=== PATIENT | female | born 1975 | race African-American/Black ===

== ENCOUNTER 2017-02-19 17:51 | Inpatient (IN) | payer OTHER ==
[~2017-02-19] VITALS: Ht 162.6 cm; Wt 118.6 kg
[~2017-02-19 17:51] MED LIST: ACIDOPHILUS1 EAC4 PO; AMLODIPINE BESYL5 MG PO; AMOX TR-K CLV1 EAC4 PO; ANAPROX DS550 M1 PO; APRESOLINE25 MG PO; AUGMENTIN875 MG PO; BACTRIM,SEPT1 TABLET PO; BENADRYL25 MG PO; CLEOCIN300 MG PO; CLONIDINE HCL0.3 MG PO; COLACE100 MG PO; COUMADIN6 MG PO; ENDOCET 5-3251 EACH PO; FERROUS SULFAT325 MG PO; FLAGYL500 MG/100 IV; FUROSEMIDE20 MG PO; GLIPIZIDE-METF1 EAC1 PO; HUMALOG100 UNIT/1 SC; HUMULIN N100 UNIT/2 SC; IBUPROFEN200 M1 PO; IBUPROFEN800 MG PO; IRON325 M1 PO; K-SOL20 MEQ/15 PO; KEFLEX500 MG PO; LABETALOL HCL200 MG PO; LEVEMIR FL100 UNIT/1 SC; LEVETIRACETAM500 MG PO; LIPITOR40 MG PO; LISINOPRIL; LISINOPRIL40 MG PO; LISINOPRIL5 MG PO; LOPRESSOR25 MG PO; LOPRESSOR50 MG PO; LOSARTAN-HCTZ1 EAC1 PO; LOVENOX100 MG/1 M SC; MACROBID100 MG PO; MEDROXYPROGESTE10 MG PO; METAGLIP PO; MILK OF MAGNESI10 ML PO; NIFEDIPINE ER30 MG PO; NITROGLYCERIN1 EAC1 TD; NORVASC10 MG PO; NOVOLOG PE100 UNITS/ SC; OXYCODONE-ACET1 EACH PO; PERCOCET 5/31 TABLET PO; PRAVASTATIN SOD40 MG PO; PRENATAL TABLE1 EAC3 PO; PRIMIDONE50 MG PO; ROCEPHIN 2 GM VI2 GM IV; SERTRALINE HCL25 MG PO; SPIRONOLACTONE50 MG PO; VICODIN 5-3001 EACH PO; VIMPAT100 MG PO; VIMPAT50 MG PO; ZESTRIL40 MG PO
[2017-02-19 19:04] LABS: HEMATOCRIT 35.7 % (36.0-46.0); MCHC 31.9 G/DL (30.0-36.0); MCV 81.5 FL (83-99); MEAN PLAT.VOLUME 9.9 uM^3 (9.5-12.4); PLATELET COUNT 541 K/uL (156-360); RBC DIS.WIDTH-SD 41.1 % (39-53); RED BLOOD COUNT 4.38 M/uL (3.80-5.20); WHITE BLOOD COUNT 9.1 K/uL (4.1-10.2)
[2017-02-19 19:35] LABS: CHLORIDE 113 mEq/L (99-109); POTASSIUM 3.1 mEq/L (3.7-5.4); SODIUM 143 mEq/L (136-147)
[2017-02-19 19:37] LABS: GLUCOSE 138 mg/dL (70-99)
[2017-02-19 19:39] LABS: ANION GAP 10 MEQ/L (2-14); TOTAL BILIRUBIN 0.2 mg/dL (0.0-1.0)
[2017-02-19 19:41] LABS: ALKALINE PHOSPHATASE 71 IU/L (3-129); GFR ESTIMATE (CALCULATED) 21 mL/min/
[2017-02-19 19:42] LABS: UREA NITROGEN (BUN) 27 mg/dL (9-23)
[2017-02-19 19:44] LABS: LIPASE 16 U/L (1.0-51.0)
[2017-02-19 20:32] LABS: QUANTITATIVE HCG < 4.0 MIU/ML
[2017-02-19] MEDS ORDERED: RAMIPRIL10 MG PO (22:07)
[2017-02-19] MEDS ORDERED: NABI650T PO (22:07)
[2017-02-19] MEDS ORDERED: VITAMIN D-32000 UNI2 PO (22:08)
[2017-02-19] MEDS ORDERED: KEPPRA500 MG PO (22:08)
[2017-02-19] MEDS ORDERED: FUROSEMIDE20 MG PO (22:08)
[2017-02-19] MEDS ORDERED: IRON325 M1 PO (22:08)
[2017-02-19] MEDS ORDERED: LABETALOL HCL200 MG PO (22:08)
[2017-02-20] VITALS (7 sets, daily range): BP systolic 158–206; BP diastolic 89–120
[2017-02-20 07:20] LABS: ANION GAP 8 MEQ/L (2-14); CHLORIDE 116 MEQ/L (99-109); GFR ESTIMATE (CALCULATED) 22 mL/min/; GLUCOSE 104 mg/dL (70-99); POTASSIUM 3.5 MEQ/L (3.7-5.4); SAMPLE HEMOLYSIS CHECK 0; SAMPLE ICTERIC CHECK 0; SAMPLE LIPEMIA CHECK 0; SODIUM 144 MEQ/L (136-147); UREA NITROGEN (BUN) 27 mg/dL (9-23)
[2017-02-20 08:00] LABS: POINT-OF-CARE USER ID ENVKC36
[2017-02-20 12:06] LABS: POINT-OF-CARE USER ID ENVKC36
[2017-02-20 16:29] LABS: POINT-OF-CARE USER ID ENVKC36
[2017-02-21] VITALS (8 sets, daily range): BP systolic 158–210; BP diastolic 82–118
[2017-02-21 06:04] LABS: ANION GAP 9 MEQ/L (2-14); CHLORIDE 116 MEQ/L (99-109); GFR ESTIMATE (CALCULATED) 22 mL/min/; GLUCOSE 123 mg/dL (70-99); IRON 18 MCG/DL (35-150); SAMPLE HEMOLYSIS CHECK 0; SAMPLE ICTERIC CHECK 0; SAMPLE LIPEMIA CHECK 0; SODIUM 143 MEQ/L (136-147); UREA NITROGEN (BUN) 26 mg/dL (9-23)
[2017-02-21 06:29] LABS: HEMATOCRIT 28.6 % (36.0-46.0); MCH 25.9 PG (29.0-34.0); MCHC 31.5 G/DL (30.0-36.0); MCV 82.4 FL (83-99); MEAN PLAT.VOLUME 9.9 uM^3 (9.5-12.4); PLATELET COUNT 383 K/uL (156-360); RBC DIS.WIDTH-CV 14.5 % (11.8-14.6); WHITE BLOOD COUNT 7.2 K/uL (4.1-10.2)
[2017-02-21 06:32] LABS: RED BLOOD COUNT 3.47 M/uL (3.80-5.20)
[2017-02-21 08:12] LABS: POINT-OF-CARE METER ID UU14174216
[2017-02-21 11:36] LABS: POINT-OF-CARE METER ID UU14174216; POINT-OF-CARE USER ID NUTSLF44
[2017-02-21 16:32] LABS: POINT-OF-CARE METER ID UU14174216; POINT-OF-CARE USER ID NUTSLF44
[2017-02-22 00:04] VITALS: BP 152/86
[2017-02-22 04:56] VITALS: BP 160/88
[2017-02-22 07:07] LABS: ANION GAP 7 MEQ/L (2-14); CHLORIDE 114 MEQ/L (99-109); GFR ESTIMATE (CALCULATED) 20 mL/min/; GLUCOSE 123 mg/dL (70-99); POTASSIUM 3.8 MEQ/L (3.7-5.4); SAMPLE HEMOLYSIS CHECK 0; SAMPLE ICTERIC CHECK 0; SAMPLE LIPEMIA CHECK 0; SODIUM 140 MEQ/L (136-147); UREA NITROGEN (BUN) 26 mg/dL (9-23)
[2017-02-22 08:24] VITALS: BP 178/84
[2017-02-22 12:07] VITALS: BP 179/88
[2017-02-22 17:32] VITALS: BP 152/84
[2017-02-22 20:15] VITALS: BP 162/88
[2017-02-23] VITALS (12 sets, daily range): BP systolic 36–184; BP diastolic 62–88
[2017-02-23 06:23] LABS: HEMATOCRIT 22.9 % (36.0-46.0); MCH 25.7 PG (29.0-34.0); MEAN PLAT.VOLUME 10.2 uM^3 (9.5-12.4); PLATELET COUNT 341 K/uL (156-360); RBC DIS.WIDTH-CV 14.8 % (11.8-14.6); RBC DIS.WIDTH-SD 45.7 % (39-53); WHITE BLOOD COUNT 6.9 K/uL (4.1-10.2)
[2017-02-23 06:59] LABS: RED BLOOD COUNT 2.76 M/uL (3.80-5.20)
[2017-02-23 07:21] LABS: ANION GAP 6 MEQ/L (2-14); CHLORIDE 114 MEQ/L (99-109); GFR ESTIMATE (CALCULATED) 21 mL/min/; GLUCOSE 101 mg/dL (70-99); POTASSIUM 3.6 MEQ/L (3.7-5.4); SAMPLE HEMOLYSIS CHECK 0; SAMPLE ICTERIC CHECK 0; SAMPLE LIPEMIA CHECK 0; SODIUM 140 MEQ/L (136-147); UREA NITROGEN (BUN) 27 mg/dL (9-23)
[2017-02-23 15:27] LABS: INTERNAL CONTROL VALID? YES
[2017-02-23 15:46] LABS: C DIFF TOXIN NEGATIVE (NEGATIVE)
[2017-02-23 15:50] LABS: PROBE CHECK PASS; SPECIMEN PROCESSING CONTROL PASS
[2017-02-23 21:22] LABS: POINT-OF-CARE METER ID UU14174216
[2017-02-24] VITALS (8 sets, daily range): BP systolic 154–201; BP diastolic 78–103
[2017-02-24 07:03] LABS: Estimated Average Glucose 143 mg/dL (70-123); HEMOGLOBIN A1c (GLYCOHEMOGLOB) 6.6 % HGB (Below 5.7)
[2017-02-24 07:34] LABS: ANION GAP 8 MEQ/L (2-14); CHLORIDE 114 MEQ/L (99-109); GFR ESTIMATE (CALCULATED) 20 mL/min/; GLUCOSE 114 mg/dL (70-99); POTASSIUM 3.9 MEQ/L (3.7-5.4); SAMPLE HEMOLYSIS CHECK 0; SAMPLE ICTERIC CHECK 0; SAMPLE LIPEMIA CHECK 0; SODIUM 141 MEQ/L (136-147); UREA NITROGEN (BUN) 29 mg/dL (9-23)
[2017-02-24 07:44] LABS: HEMATOCRIT 28.3 % (36.0-46.0); MCH 25.9 PG (29.0-34.0); MCHC 31.4 G/DL (30.0-36.0); MCV 82.5 FL (83-99); MEAN PLAT.VOLUME 10.6 uM^3 (9.5-12.4); PLATELET COUNT 297 K/uL (156-360); RBC DIS.WIDTH-CV 15.3 % (11.8-14.6); RBC DIS.WIDTH-SD 46.2 % (39-53)
[2017-02-24 08:26] LABS: RED BLOOD COUNT 3.43 M/uL (3.80-5.20); WHITE BLOOD COUNT 9.7 K/uL (4.1-10.2)
[2017-02-24 11:44] LABS: POINT-OF-CARE METER ID UU14174216
[2017-02-24 15:21] LABS: POC NON-PRINT COM 1 ND
[2017-02-24 16:16] LABS: POINT-OF-CARE METER ID UU14174216
[2017-02-25] VITALS (7 sets, daily range): BP systolic 150–170; BP diastolic 68–88
[2017-02-25 06:50] LABS: ANION GAP 7 MEQ/L (2-14); CHLORIDE 115 MEQ/L (99-109); GFR ESTIMATE (CALCULATED) 19 mL/min/; GLUCOSE 103 mg/dL (70-99); POTASSIUM 4.1 MEQ/L (3.7-5.4); SAMPLE HEMOLYSIS CHECK 0; SAMPLE ICTERIC CHECK 0; SAMPLE LIPEMIA CHECK 0; SODIUM 141 MEQ/L (136-147); UREA NITROGEN (BUN) 29 mg/dL (9-23)
[2017-02-25 07:47] LABS: POINT-OF-CARE METER ID UU14174216
[2017-02-25 11:24] LABS: POINT-OF-CARE METER ID UU14174216
[2017-02-25 16:29] LABS: POINT-OF-CARE METER ID UU14174216
[2017-02-26 03:15] VITALS: BP 146/64
[2017-02-26 06:16] LABS: EOSINOPHIL (%) 2.6 % (0-5); EOSINOPHIL COUNT 0.3 K/uL (0-0.3); HEMATOCRIT 28.1 % (36.0-46.0); IMMATURE GRANULOCYTE (%) 0.4 % (0.0-0.7); INSTRUMENT ABS NEUTROPHIL CT 6.3 K/uL; LYMPHOCYTE COUNT 2.5 K/uL (1.0-2.8); MCHC 31.3 G/DL (30.0-36.0); MCV 83.1 FL (83-99); MONOCYTE (%) 10.4 % (3-12); MONOCYTE COUNT 1.1 K/uL (0-0.8); NEUTROPHIL (%) 61.7 % (45-76); NEUTROPHIL COUNT 6.3 K/uL (1.8-6.4); PLATELET COUNT 300 K/uL (156-360); RBC DIS.WIDTH-SD 45.2 % (39-53); RED BLOOD COUNT 3.38 M/uL (3.80-5.20); WHITE BLOOD COUNT 10.2 K/uL (4.1-10.2)
[2017-02-26 06:48] LABS: ANION GAP 7 MEQ/L (2-14); CHLORIDE 114 MEQ/L (99-109); GFR ESTIMATE (CALCULATED) 20 mL/min/; GLUCOSE 113 mg/dL (70-99); POTASSIUM 4.2 MEQ/L (3.7-5.4); SAMPLE HEMOLYSIS CHECK 0; SAMPLE ICTERIC CHECK 0; SAMPLE LIPEMIA CHECK 0; SODIUM 140 MEQ/L (136-147); UREA NITROGEN (BUN) 28 mg/dL (9-23)
[2017-02-26 08:00] VITALS: BP 158/98
[2017-02-26 11:32] VITALS: BP 160/98
[2017-02-26 12:10] LABS: POINT-OF-CARE METER ID UU13113781
[2017-02-26] MEDS ORDERED: HYDROCHLOROTHIA25 MG PO (12:47)
[2017-02-26] MEDS ORDERED: LOSARTAN POTAS100 MG PO (12:47)
[2017-02-26] MEDS ORDERED: DOXAZOSIN MESYLA2 MG PO (12:47)
[2017-02-26] MEDS ORDERED: LABETALOL HCL200 MG PO (12:47)
[2017-02-26] MEDS ORDERED: IMDUR30 MG PO (12:47)
[2017-02-26] MEDS ORDERED: APRESOLINE25 MG PO (12:47)
== END 2017-02-26 14:57 | disposition home health service (06) | DRG 683 ==
LOC: EME 17:51 → EDOF 23:44 → 4EAST 23:44
PROVIDERS: Emergency Medicine; Family Medicine; Internal Medicine; Internal Medicine Nephrology; Physician Assistant; Student in an Organized Health Care Education/Training Program
PROC: 30233N1 Transfusion of Nonautologous Red Blood Cells into Peripheral Vein, Percutaneous Approach (ICD-10-PCS; principal; 2017-02-23)
DX: N17.9 Acute kidney failure, unspecified (principal); E46 Unspecified protein-calorie malnutrition; Z68.41 Body mass index [BMI] 40.0-44.9, adult; R42 Dizziness and giddiness; R19.7 Diarrhea, unspecified; R11.2 Nausea with vomiting, unspecified; E87.6 Hypokalemia; D50.9 Iron deficiency anemia, unspecified; I16.0 Hypertensive urgency; I12.9 Hypertensive chronic kidney disease with stage 1 through stage 4 chronic kidney disease, or unspecified chronic kidney disease; N18.4 Chronic kidney disease, stage 4 (severe); E11.21 Type 2 diabetes mellitus with diabetic nephropathy; E11.22 Type 2 diabetes mellitus with diabetic chronic kidney disease; E11.311 Type 2 diabetes mellitus with unspecified diabetic retinopathy with macular edema; L73.2 Hidradenitis suppurativa; N61.1 Abscess of the breast and nipple; R32 Unspecified urinary incontinence; E66.01 Morbid (severe) obesity due to excess calories; Z86.73 Personal history of transient ischemic attack (TIA), and cerebral infarction without residual deficits; Z88.0 Allergy status to penicillin; Z88.2 Allergy status to sulfonamides; Z91.040 Latex allergy status; Z86.718 Personal history of other venous thrombosis and embolism; Z91.19 Patient's noncompliance with other medical treatment and regimen
CPT/HCPCS: 70450; 76770; 80048; 80053; 80069; 81003; 82272; 82948; 83036; 83540; 83690; 83735; 84466; 84702; 85025; 85027; 86850; 86900; 86901; 86920; 87493; 99281; 99285; A6260; J0360; J0780; J1644; J1756; J1815; J1940; J2270; J2405; J7030; J7050; P9016

== ENCOUNTER 2017-05-06 08:15 | Emergency (ER) | payer OTHER ==
[~2017-05-06] VITALS: Ht 172.7 cm; Wt 115.8 kg
[~2017-05-06 08:15] MED LIST changes: +DOXAZOSIN MESYLA2 MG PO; +HYDROCHLOROTHIA25 MG PO; +IMDUR30 MG PO; +KEPPRA500 MG PO; +LOSARTAN POTAS100 MG PO; +NABI650T PO; +RAMIPRIL10 MG PO; +VITAMIN D-32000 UNI2 PO
[2017-05-06 08:44] LABS: EOSINOPHIL (%) 2.4 % (0-5); EOSINOPHIL COUNT 0.2 K/uL (0-0.3); HEMATOCRIT 29.4 % (36.0-46.0); IMMATURE GRANULOCYTE (%) 0.3 % (0.0-0.7); INSTRUMENT ABS NEUTROPHIL CT 4.4 K/uL; LYMPHOCYTE COUNT 1.7 K/uL (1.0-2.8); MCH 26.5 PG (29.0-34.0); MCHC 30.6 G/DL (30.0-36.0); MCV 86.5 FL (83-99); MEAN PLAT.VOLUME 10.3 uM^3 (9.5-12.4); MONOCYTE (%) 8.8 % (3-12); MONOCYTE COUNT 0.6 K/uL (0-0.8); NEUTROPHIL (%) 62.9 % (45-76); NEUTROPHIL COUNT 4.4 K/uL (1.8-6.4); PLATELET COUNT 351 K/uL (156-360); RBC DIS.WIDTH-CV 15.1 % (11.8-14.6); RBC DIS.WIDTH-SD 47.5 % (39-53)
[2017-05-06 08:53] LABS: PROTHROMBIN TIME 10.4 (9.2-11.2); PTT 24.5 (25-32)
[2017-05-06 08:54] LABS: AMYLASE 44 IU/L (1-118); CHLORIDE 115 mEq/L (99-109); POTASSIUM 4.1 mEq/L (3.7-5.4); SODIUM 143 mEq/L (136-147)
[2017-05-06 08:56] LABS: GLUCOSE 158 mg/dL (70-99)
[2017-05-06 08:57] LABS: ANION GAP 9 MEQ/L (2-14)
[2017-05-06 08:59] LABS: SERUM ETHYL ALCOHOL < 10 mg/dL
[2017-05-06 09:00] LABS: CREATININE 4.9 mg/dL (0.6-1.3); POTASSIUM 3.9 mEq/L (3.7-5.4)
[2017-05-06 09:00] LABS: GFR ESTIMATE (CALCULATED) 13 mL/min/
[2017-05-06 09:01] LABS: UREA NITROGEN (BUN) 39 mg/dL (9-23)
[2017-05-06 09:03] LABS: LIPASE 22 U/L (1.0-51.0)
[2017-05-06 09:06] LABS: TROP-I INTERPRETATION NEGATIVE; TROPONIN-I 0.01 ng/mL (0.0-0.30)
[2017-05-06 09:08] LABS: QUANTITATIVE HCG < 4.0 MIU/ML
[2017-05-06 13:24] LABS: ADD MIUA? YES; BILIRUBIN NEGATIVE; BLOOD NEGATIVE; COLOR YELLOW ((YELLOW)); GLUCOSE (STRIP) >=500; KETONES NEGATIVE; LEUKOCYTES NEGATIVE; NITRITE NEGATIVE; PROTEIN (STRIP) >=500; SPECIFIC GRAVITY 1.015 (1.000-1.030); UROBILINOGEN 0.2 MG/DL (0.2-1.0)
[2017-05-06 13:29] VITALS: BP 204/146
[2017-05-06 13:37] LABS: AMPHETAMINE NEGATIVE (500 ng/mL); BARBITURATES NEGATIVE (200 ng/mL); BENZODIAZEPINES NEGATIVE (150 ng/mL); COCAINE NEGATIVE (150 ng/mL); INTERNAL CONTROLS VALID? YES; METHADONE NEGATIVE (200 ng/mL); METHAMPHETAMINE NEGATIVE (500 ng/mL); OPIATES (MORPHINE) NEGATIVE (100 ng/mL); OXYCODONE NEGATIVE (100 ng/mL); PHENCYCLIDINE NEGATIVE (25 ng/mL); PROPOXYPHENE NEGATIVE (300 ng/mL); THC CANNABINOIDS NEGATIVE (50 ng/mL); TRICYCLIC ANTIDEPRESSANTS NEGATIVE (300 ng/mL)
[2017-05-06 13:40] LABS: BACTERIA RARE /HPF; EPITHELIAL CELLS NONE SEEN /HPF; HYALINE CASTS 0-5 /LPF; MUCUS NONE SEEN /LPF; RED BLOOD CELLS 0-5 /HPF (0-5); UCUL ADDED? NO
== END 2017-05-06 13:34 | disposition short-term general hospital (02) ==
LOC: EME 08:15
PROVIDERS: Emergency Medicine
DX: I63.9 Cerebral infarction, unspecified (principal); R47.01 Aphasia; R29.810 Facial weakness; G81.91 Hemiplegia, unspecified affecting right dominant side; R47.1 Dysarthria and anarthria; R29.714 NIHSS score 14; N28.9 Disorder of kidney and ureter, unspecified; I10 Essential (primary) hypertension; E11.9 Type 2 diabetes mellitus without complications; Z79.4 Long term (current) use of insulin; Z86.73 Personal history of transient ischemic attack (TIA), and cerebral infarction without residual deficits; Z87.891 Personal history of nicotine dependence; Z88.0 Allergy status to penicillin
CPT/HCPCS: 70450; 70544; 70547; 70551; 80047; 80048; 81003; 82150; 83690; 84484; 84702; 85025; 85610; 85730; 86900; 86901; 93005; 99281; 99285; G0480

== ENCOUNTER 2017-05-10 13:06 | Inpatient (IN) | payer OTHER ==
[~2017-05-10] VITALS: Ht 167.6 cm; Wt 94.5 kg
[2017-05-10 13:48] VITALS: BP 137/91
[2017-05-10] MEDS ORDERED: ATORVASTATIN CA80 MG PO (14:18)
[2017-05-10] MEDS ORDERED: ASPIRIN81 M2 PO (14:18)
[2017-05-10 16:03] LABS: POINT-OF-CARE METER ID UU14174215
[2017-05-10 21:21] LABS: POINT-OF-CARE METER ID UU13113720
[2017-05-11 04:30] VITALS: BP 140/81
[2017-05-11 06:44] LABS: POINT-OF-CARE METER ID UU14174215; POINT-OF-CARE USER ID ENVGAF
[2017-05-11 06:55] LABS: HEMATOCRIT 26.2 % (36.0-46.0); MCH 26.8 PG (29.0-34.0); MCHC 30.9 G/DL (30.0-36.0); MCV 86.8 FL (83-99); MEAN PLAT.VOLUME 10.7 uM^3 (9.5-12.4); PLATELET COUNT 283 K/uL (156-360); RBC DIS.WIDTH-CV 14.6 % (11.8-14.6); RBC DIS.WIDTH-SD 46.2 % (39-53); RED BLOOD COUNT 3.02 M/uL (3.80-5.20)
[2017-05-11 07:23] LABS: ALKALINE PHOSPHATASE 56 IU/L (3-129); ANION GAP 8 MEQ/L (2-14); CHLORIDE 117 MEQ/L (99-109); GFR ESTIMATE (CALCULATED) 13 mL/min/; GLUCOSE 144 mg/dL (70-99); POTASSIUM 4.3 MEQ/L (3.7-5.4); SAMPLE HEMOLYSIS CHECK 0; SAMPLE ICTERIC CHECK 0; SAMPLE LIPEMIA CHECK 0; SODIUM 144 MEQ/L (136-147); TOTAL BILIRUBIN 0.2 MG/DL (0.0-1.0); UREA NITROGEN (BUN) 41 mg/dL (9-23)
[2017-05-11 11:19] LABS: POINT-OF-CARE METER ID UU14174215; POINT-OF-CARE USER ID ENVGAF
[2017-05-11 14:57] VITALS: BP 120/65
[2017-05-11 16:01] LABS: POINT-OF-CARE METER ID UU14174215; POINT-OF-CARE USER ID 610211320
[2017-05-11 21:10] LABS: POINT-OF-CARE METER ID UU14174215; POINT-OF-CARE USER ID 610211320
[2017-05-12 05:34] VITALS: BP 121/68
[2017-05-12 07:12] LABS: EOSINOPHIL (%) 1.8 % (0-5); EOSINOPHIL COUNT 0.1 K/uL (0-0.3); HEMATOCRIT 26.3 % (36.0-46.0); IMMATURE GRANULOCYTE (%) 0.3 % (0.0-0.7); INSTRUMENT ABS NEUTROPHIL CT 4.3 K/uL; LYMPHOCYTE COUNT 1.3 K/uL (1.0-2.8); MCH 27.2 PG (29.0-34.0); MCHC 30.8 G/DL (30.0-36.0); MCV 88.3 FL (83-99); MEAN PLAT.VOLUME 10.8 uM^3 (9.5-12.4); MONOCYTE (%) 7.6 % (3-12); MONOCYTE COUNT 0.5 K/uL (0-0.8); NEUTROPHIL (%) 68.7 % (45-76); NEUTROPHIL COUNT 4.3 K/uL (1.8-6.4); PLATELET COUNT 287 K/uL (156-360); RBC DIS.WIDTH-CV 14.7 % (11.8-14.6); RBC DIS.WIDTH-SD 47.8 % (39-53); RED BLOOD COUNT 2.98 M/uL (3.80-5.20); WHITE BLOOD COUNT 6.3 K/uL (4.1-10.2)
[2017-05-12 07:23] LABS: POINT-OF-CARE METER ID UU13113720; POINT-OF-CARE USER ID AHSSSJB31
[2017-05-12 07:32] LABS: ANION GAP 9 MEQ/L (2-14); CHLORIDE 117 MEQ/L (99-109); GFR ESTIMATE (CALCULATED) 13 mL/min/; GLUCOSE 117 mg/dL (70-99); POTASSIUM 4.5 MEQ/L (3.7-5.4); SAMPLE HEMOLYSIS CHECK 0; SAMPLE ICTERIC CHECK 0; SAMPLE LIPEMIA CHECK 0; SODIUM 145 MEQ/L (136-147); UREA NITROGEN (BUN) 44 mg/dL (9-23)
[2017-05-12 10:22] LABS: HBSG INDEX 0.21
[2017-05-12 10:23] LABS: HPCA INDEX 0.05
[2017-05-12 10:25] LABS: ANTI-HEPATITIS A VIRUS (IGM) Nonreactive; ANTI-HEPATITIS B CORE (IGM) Nonreactive; HAV INDEX 0.11; HBC IgM INDEX 0.05
[2017-05-12 11:22] LABS: POINT-OF-CARE METER ID UU14174215; POINT-OF-CARE USER ID AHSSSJB31
[2017-05-12 15:43] VITALS: BP 148/73
[2017-05-12 16:42] LABS: POINT-OF-CARE METER ID UU13113720
[2017-05-12 21:26] LABS: POINT-OF-CARE METER ID UU14174215
[2017-05-13 05:06] VITALS: BP 138/68
[2017-05-13 06:41] LABS: EOSINOPHIL (%) 2.4 % (0-5); EOSINOPHIL COUNT 0.2 K/uL (0-0.3); HEMATOCRIT 24.8 % (36.0-46.0); IMMATURE GRANULOCYTE (%) 0.9 % (0.0-0.7); IMMATURE GRANULOCYTE COUNT 0.1 K/uL; INSTRUMENT ABS NEUTROPHIL CT 4.9 K/uL; LYMPHOCYTE COUNT 1.6 K/uL (1.0-2.8); MCH 27.9 PG (29.0-34.0); MCHC 31.9 G/DL (30.0-36.0); MCV 87.6 FL (83-99); MEAN PLAT.VOLUME 11.7 uM^3 (9.5-12.4); MONOCYTE (%) 9.6 % (3-12); MONOCYTE COUNT 0.7 K/uL (0-0.8); NEUTROPHIL (%) 65.2 % (45-76); NEUTROPHIL COUNT 4.9 K/uL (1.8-6.4); PLATELET COUNT 237 K/uL (156-360); RBC DIS.WIDTH-CV 14.7 % (11.8-14.6); RBC DIS.WIDTH-SD 47.2 % (39-53); RED BLOOD COUNT 2.83 M/uL (3.80-5.20); WHITE BLOOD COUNT 7.5 K/uL (4.1-10.2)
[2017-05-13 06:47] LABS: POINT-OF-CARE METER ID UU13113720; POINT-OF-CARE USER ID ENVGAF
[2017-05-13 07:15] LABS: ANION GAP 9 MEQ/L (2-14); CHLORIDE 118 MEQ/L (99-109); GFR ESTIMATE (CALCULATED) 13 mL/min/; GLUCOSE 100 mg/dL (70-99); POTASSIUM 4.5 MEQ/L (3.7-5.4); SAMPLE HEMOLYSIS CHECK 0; SAMPLE ICTERIC CHECK 0; SAMPLE LIPEMIA CHECK 0; SODIUM 144 MEQ/L (136-147); UREA NITROGEN (BUN) 44 mg/dL (9-23)
[2017-05-13 11:08] LABS: POINT-OF-CARE METER ID UU13113720; POINT-OF-CARE USER ID ENVGAF
[2017-05-13 15:36] VITALS: BP 135/95
[2017-05-13 16:35] LABS: POINT-OF-CARE METER ID UU13113720
[2017-05-13 21:06] LABS: POINT-OF-CARE METER ID UU13113720
[2017-05-14 05:03] VITALS: BP 139/80
[2017-05-14 06:41] LABS: ANION GAP 9 MEQ/L (2-14); CHLORIDE 117 MEQ/L (99-109); GFR ESTIMATE (CALCULATED) 12 mL/min/; GLUCOSE 98 mg/dL (70-99); POTASSIUM 4.5 MEQ/L (3.7-5.4); SAMPLE HEMOLYSIS CHECK 0; SAMPLE ICTERIC CHECK 0; SAMPLE LIPEMIA CHECK 0; SODIUM 145 MEQ/L (136-147); UREA NITROGEN (BUN) 44 mg/dL (9-23)
[2017-05-14 06:59] LABS: POINT-OF-CARE METER ID UU13113720; POINT-OF-CARE USER ID AHSSSJB31
[2017-05-14 08:03] VITALS: BP 174/81
[2017-05-14 10:38] LABS: UR CREATININE CONCENTRATION 97.8 MG/DL
[2017-05-14 12:15] LABS: POINT-OF-CARE METER ID UU13113720; POINT-OF-CARE USER ID AHSSSJB31
[2017-05-14 15:24] VITALS: BP 173/106
[2017-05-14 16:50] LABS: POINT-OF-CARE METER ID UU13113720
[2017-05-14 21:45] LABS: POINT-OF-CARE METER ID UU14174215
[2017-05-15 05:26] VITALS: BP 128/81
[2017-05-15 06:44] LABS: POINT-OF-CARE METER ID UU13113720
[2017-05-15 07:17] LABS: ANION GAP 12 MEQ/L (2-14); CHLORIDE 118 MEQ/L (99-109); GFR ESTIMATE (CALCULATED) 12 mL/min/; GLUCOSE 97 mg/dL (70-99); POTASSIUM 4.4 MEQ/L (3.7-5.4); SAMPLE HEMOLYSIS CHECK 0; SAMPLE ICTERIC CHECK 0; SAMPLE LIPEMIA CHECK 0; SODIUM 147 MEQ/L (136-147); UREA NITROGEN (BUN) 45 mg/dL (9-23)
[2017-05-15 11:57] LABS: POINT-OF-CARE METER ID UU13113720; POINT-OF-CARE USER ID ENVGAF
[2017-05-15 16:30] LABS: POINT-OF-CARE METER ID UU13113720
[2017-05-15 16:33] VITALS: BP 140/84
[2017-05-15 21:06] LABS: POINT-OF-CARE METER ID UU14174215
[2017-05-16 04:48] VITALS: BP 129/68
[2017-05-16 06:41] LABS: POINT-OF-CARE METER ID UU13113720; POINT-OF-CARE USER ID ENVGAF
[2017-05-16 07:17] LABS: EOSINOPHIL (%) 3.4 % (0-5); EOSINOPHIL COUNT 0.2 K/uL (0-0.3); HEMATOCRIT 25.1 % (36.0-46.0); IMMATURE GRANULOCYTE (%) 0.3 % (0.0-0.7); INSTRUMENT ABS NEUTROPHIL CT 3.8 K/uL; MCH 27.7 PG (29.0-34.0); MCHC 31.1 G/DL (30.0-36.0); MEAN PLAT.VOLUME 10.8 uM^3 (9.5-12.4); MONOCYTE (%) 11.6 % (3-12); MONOCYTE COUNT 0.8 K/uL (0-0.8); NEUTROPHIL (%) 55.6 % (45-76); NEUTROPHIL COUNT 3.8 K/uL (1.8-6.4); RBC DIS.WIDTH-CV 14.3 % (11.8-14.6); RBC DIS.WIDTH-SD 46.1 % (39-53); RED BLOOD COUNT 2.82 M/uL (3.80-5.20); WHITE BLOOD COUNT 6.8 K/uL (4.1-10.2)
[2017-05-16 07:24] LABS: PLATELET COUNT 329 K/uL (156-360)
[2017-05-16 07:40] LABS: ANION GAP 9 MEQ/L (2-14); CHLORIDE 119 MEQ/L (99-109); GFR ESTIMATE (CALCULATED) 12 mL/min/; GLUCOSE 88 mg/dL (70-99); POTASSIUM 4.3 MEQ/L (3.7-5.4); SAMPLE HEMOLYSIS CHECK 0; SAMPLE ICTERIC CHECK 0; SAMPLE LIPEMIA CHECK 0; SODIUM 147 MEQ/L (136-147); UREA NITROGEN (BUN) 44 mg/dL (9-23)
[2017-05-16 11:44] LABS: POINT-OF-CARE METER ID UU13113720; POINT-OF-CARE USER ID AHSSSJB31
[2017-05-16 15:39] VITALS: BP 130/75
[2017-05-16 16:32] LABS: POINT-OF-CARE METER ID UU14174215
[2017-05-16 21:23] LABS: POINT-OF-CARE METER ID UU13113720
[2017-05-17 04:32] VITALS: BP 155/72
[2017-05-17 07:04] LABS: ANION GAP 10 MEQ/L (2-14); CHLORIDE 118 MEQ/L (99-109); GFR ESTIMATE (CALCULATED) 13 mL/min/; GLUCOSE 84 mg/dL (70-99); POTASSIUM 4.3 MEQ/L (3.7-5.4); SAMPLE HEMOLYSIS CHECK 0; SAMPLE ICTERIC CHECK 0; SAMPLE LIPEMIA CHECK 0; SODIUM 146 MEQ/L (136-147); UREA NITROGEN (BUN) 42 mg/dL (9-23)
[2017-05-17 08:15] LABS: POINT-OF-CARE METER ID UU13113720; POINT-OF-CARE USER ID AHSSSJB31
[2017-05-17 11:23] LABS: POINT-OF-CARE METER ID UU13113720; POINT-OF-CARE USER ID AHSSSJB31
[2017-05-17 15:26] VITALS: BP 144/71
[2017-05-18 04:37] VITALS: BP 157/73
[2017-05-18 07:29] LABS: IRON 33 MCG/DL (35-150)
[2017-05-18 07:38] LABS: POINT-OF-CARE METER ID UU14174215
[2017-05-18 15:11] VITALS: BP 137/73
[2017-05-19 05:23] VITALS: BP 133/65
[2017-05-19 06:10] LABS: POINT-OF-CARE METER ID UU13113720
[2017-05-19 08:16] LABS: INTACT PARATHYROID HORMONE 63 pg/mL (10-69)
[2017-05-19 10:31] LABS: AHBS INDEX 0; HEPATITIS B SURFACE ANTIBODY Nonreactive; HPCA INDEX 0.05
[2017-05-19 11:07] LABS: ANTI-HEPATITIS B CORE (TOTAL) Nonreactive; HBCT INDEX 0.07
[2017-05-19 15:45] VITALS: BP 156/93
[2017-05-20 05:02] VITALS: BP 129/74
[2017-05-20 06:21] LABS: POINT-OF-CARE METER ID UU13113720
[2017-05-20 10:27] LABS: EOSINOPHIL (%) 3.4 % (0-5); EOSINOPHIL COUNT 0.3 K/uL (0-0.3); HEMATOCRIT 24.3 % (36.0-46.0); IMMATURE GRANULOCYTE (%) 0.5 % (0.0-0.7); LYMPHOCYTE COUNT 1.4 K/uL (1.0-2.8); MCH 26.5 PG (29.0-34.0); MCV 88.4 FL (83-99); MEAN PLAT.VOLUME 10.9 uM^3 (9.5-12.4); MONOCYTE (%) 7.7 % (3-12); MONOCYTE COUNT 0.7 K/uL (0-0.8); NEUTROPHIL (%) 71.2 % (45-76); PLATELET COUNT 320 K/uL (156-360); RBC DIS.WIDTH-CV 14.1 % (11.8-14.6); RBC DIS.WIDTH-SD 45.1 % (39-53); RED BLOOD COUNT 2.75 M/uL (3.80-5.20); WHITE BLOOD COUNT 8.4 K/uL (4.1-10.2)
[2017-05-20 10:28] LABS: ANION GAP 9 MEQ/L (2-14); CHLORIDE 118 MEQ/L (99-109); GFR ESTIMATE (CALCULATED) 14 mL/min/; GLUCOSE 90 mg/dL (70-99); POTASSIUM 4.4 MEQ/L (3.7-5.4); SAMPLE HEMOLYSIS CHECK 0; SAMPLE ICTERIC CHECK 0; SAMPLE LIPEMIA CHECK 0; SODIUM 145 MEQ/L (136-147); UREA NITROGEN (BUN) 42 mg/dL (9-23)
[2017-05-20 12:09] VITALS: BP 143/81
[2017-05-20 15:30] VITALS: BP 139/72
[2017-05-21 05:54] VITALS: BP 123/67
[2017-05-21 06:00] LABS: POINT-OF-CARE METER ID UU13113720
[2017-05-21 08:15] LABS: EOSINOPHIL (%) 2.4 % (0-5); EOSINOPHIL COUNT 0.2 K/uL (0-0.3); HEMATOCRIT 22.9 % (36.0-46.0); IMMATURE GRANULOCYTE (%) 0.7 % (0.0-0.7); IMMATURE GRANULOCYTE COUNT 0.1 K/uL; INSTRUMENT ABS NEUTROPHIL CT 5.5 K/uL; MCH 27.1 PG (29.0-34.0); MCV 87.4 FL (83-99); MEAN PLAT.VOLUME 10.6 uM^3 (9.5-12.4); MONOCYTE (%) 8.8 % (3-12); MONOCYTE COUNT 0.8 K/uL (0-0.8); NEUTROPHIL (%) 64.4 % (45-76); NEUTROPHIL COUNT 5.5 K/uL (1.8-6.4); PLATELET COUNT 299 K/uL (156-360); RBC DIS.WIDTH-SD 43.9 % (39-53); RED BLOOD COUNT 2.62 M/uL (3.80-5.20); WHITE BLOOD COUNT 8.5 K/uL (4.1-10.2)
[2017-05-21 08:25] LABS: ANION GAP 9 MEQ/L (2-14); CHLORIDE 114 MEQ/L (99-109); SAMPLE HEMOLYSIS CHECK 0; SAMPLE ICTERIC CHECK 0; SAMPLE LIPEMIA CHECK 0; SODIUM 145 MEQ/L (136-147)
[2017-05-21 08:32] LABS: GFR ESTIMATE (CALCULATED) 18 mL/min/; GLUCOSE 90 mg/dL (70-99); UREA NITROGEN (BUN) 30 mg/dL (9-23)
[2017-05-21 11:05] VITALS: BP 169/85
[2017-05-21 15:11] VITALS: BP 131/63
[2017-05-22 04:28] VITALS: BP 141/67
[2017-05-22 07:09] LABS: EOSINOPHIL (%) 2.4 % (0-5); HEMATOCRIT 23.6 % (36.0-46.0); IMMATURE GRANULOCYTE (%) 0.8 % (0.0-0.7); LYMPHOCYTE COUNT 1.9 K/uL (1.0-2.8); MCHC 31.4 G/DL (30.0-36.0); MCV 86.1 FL (83-99); MEAN PLAT.VOLUME 10.6 uM^3 (9.5-12.4); MONOCYTE (%) 9.2 % (3-12); MONOCYTE COUNT 0.8 K/uL (0-0.8); NEUTROPHIL (%) 66.5 % (45-76); PLATELET COUNT 307 K/uL (156-360); RBC DIS.WIDTH-SD 43.9 % (39-53); RED BLOOD COUNT 2.74 M/uL (3.80-5.20)
[2017-05-22 07:10] LABS: EOSINOPHIL COUNT 0.2 K/uL (0-0.3); IMMATURE GRANULOCYTE COUNT 0.1 K/uL
[2017-05-22 07:18] LABS: POINT-OF-CARE METER ID UU13113720; POINT-OF-CARE USER ID AHSSSJB31
[2017-05-22 07:35] LABS: ANION GAP 11 MEQ/L (2-14); CHLORIDE 110 MEQ/L (99-109); GFR ESTIMATE (CALCULATED) 21 mL/min/; GLUCOSE 95 mg/dL (70-99); POTASSIUM 3.7 MEQ/L (3.7-5.4); SAMPLE HEMOLYSIS CHECK 0; SAMPLE ICTERIC CHECK 0; SAMPLE LIPEMIA CHECK 0; SODIUM 143 MEQ/L (136-147); UREA NITROGEN (BUN) 23 mg/dL (9-23)
[2017-05-22 08:20] LABS: FERRITIN 173 NG/ML (10-291)
[2017-05-22 15:00] VITALS: BP 141/78
[2017-05-22 21:42] VITALS: BP 144/70
[2017-05-23 05:58] VITALS: BP 154/72
[2017-05-23 06:28] LABS: POINT-OF-CARE METER ID UU13113720; POINT-OF-CARE USER ID STWHLR41
[2017-05-23 08:09] LABS: EOSINOPHIL COUNT 0.2 K/uL (0-0.3); HEMATOCRIT 23.2 % (36.0-46.0); IMMATURE GRANULOCYTE (%) 0.6 % (0.0-0.7); IMMATURE GRANULOCYTE COUNT 0.1 K/uL; INSTRUMENT ABS NEUTROPHIL CT 7.5 K/uL; LYMPHOCYTE COUNT 1.9 K/uL (1.0-2.8); MCH 27.8 PG (29.0-34.0); MCHC 31.5 G/DL (30.0-36.0); MCV 88.2 FL (83-99); MEAN PLAT.VOLUME 10.6 uM^3 (9.5-12.4); MONOCYTE (%) 8.2 % (3-12); MONOCYTE COUNT 0.9 K/uL (0-0.8); NEUTROPHIL (%) 71.1 % (45-76); NEUTROPHIL COUNT 7.5 K/uL (1.8-6.4); PLATELET COUNT 315 K/uL (156-360); RBC DIS.WIDTH-SD 44.2 % (39-53); RED BLOOD COUNT 2.63 M/uL (3.80-5.20); WHITE BLOOD COUNT 10.5 K/uL (4.1-10.2)
[2017-05-23 09:16] LABS: ANION GAP 10 MEQ/L (2-14); CHLORIDE 112 MEQ/L (99-109); GFR ESTIMATE (CALCULATED) 20 mL/min/; GLUCOSE 94 mg/dL (70-99); IRON 19 MCG/DL (35-150); POTASSIUM 3.7 MEQ/L (3.7-5.4); SAMPLE HEMOLYSIS CHECK 0; SAMPLE ICTERIC CHECK 0; SAMPLE LIPEMIA CHECK 0; SODIUM 145 MEQ/L (136-147); UREA NITROGEN (BUN) 23 mg/dL (9-23)
[2017-05-23 11:25] VITALS: BP 169/79
[2017-05-23 11:36] VITALS: BP 169/79
[2017-05-23 15:13] VITALS: BP 136/67
[2017-05-24 04:43] VITALS: BP 131/68
[2017-05-24 06:06] LABS: POINT-OF-CARE METER ID UU14174215
[2017-05-24 15:15] VITALS: BP 132/63
[2017-05-25 05:41] VITALS: BP 132/70
[2017-05-25 05:45] LABS: POINT-OF-CARE METER ID UU14174215
[2017-05-25 15:02] VITALS: BP 141/72
[2017-05-26 05:40] VITALS: BP 138/68
[2017-05-26 06:15] LABS: POINT-OF-CARE METER ID UU14174215
[2017-05-26 07:07] LABS: EOSINOPHIL (%) 2.1 % (0-5); EOSINOPHIL COUNT 0.2 K/uL (0-0.3); HEMATOCRIT 25.4 % (36.0-46.0); IMMATURE GRANULOCYTE (%) 0.6 % (0.0-0.7); IMMATURE GRANULOCYTE COUNT 0.1 K/uL; INSTRUMENT ABS NEUTROPHIL CT 7.9 K/uL; LYMPHOCYTE COUNT 1.8 K/uL (1.0-2.8); MCH 27.3 PG (29.0-34.0); MCHC 30.7 G/DL (30.0-36.0); MCV 88.8 FL (83-99); MEAN PLAT.VOLUME 9.7 uM^3 (9.5-12.4); MONOCYTE (%) 8.8 % (3-12); NEUTROPHIL (%) 71.9 % (45-76); NEUTROPHIL COUNT 7.9 K/uL (1.8-6.4); PLATELET COUNT 343 K/uL (156-360); RBC DIS.WIDTH-CV 14.2 % (11.8-14.6); RBC DIS.WIDTH-SD 45.2 % (39-53); RED BLOOD COUNT 2.86 M/uL (3.80-5.20)
[2017-05-26 07:31] LABS: ANION GAP 7 MEQ/L (2-14); CHLORIDE 111 MEQ/L (99-109); POTASSIUM 3.8 MEQ/L (3.7-5.4); SAMPLE HEMOLYSIS CHECK 0; SAMPLE ICTERIC CHECK 0; SAMPLE LIPEMIA CHECK 0; SODIUM 145 MEQ/L (136-147)
[2017-05-26 07:37] LABS: GFR ESTIMATE (CALCULATED) 18 mL/min/; GLUCOSE 104 mg/dL (70-99); UREA NITROGEN (BUN) 19 mg/dL (9-23)
[2017-05-26 15:25] VITALS: BP 130/69
[2017-05-27 05:56] VITALS: BP 114/56
[2017-05-27 07:21] LABS: POINT-OF-CARE METER ID UU14174215
[2017-05-27] MEDS ORDERED: VENOFER100 MG/5 M IV (11:30)
[2017-05-27] MEDS ORDERED: CLOPIDOGREL75 MG PO (11:31)
[2017-05-27] MEDS ORDERED: LABETALOL HCL200 MG PO (11:31)
[2017-05-27] MEDS ORDERED: HEPARIN SO5000 UNITS SC (11:31)
[2017-05-27] MEDS ORDERED: NIFEDIPINE ER30 MG PO (11:32)
[2017-05-27] MEDS ORDERED: SENNA PLUS TAB1 EACH PO (11:32)
[2017-05-27] MEDS ORDERED: THERAGRAN1 TABLET PO (11:33)
[2017-05-27 15:27] VITALS: BP 138/77
[2017-05-28 05:51] VITALS: BP 169/78
[2017-05-28 06:32] LABS: POINT-OF-CARE METER ID UU14174215
[2017-05-28 08:10] LABS: EOSINOPHIL (%) 3.7 % (0-5); EOSINOPHIL COUNT 0.3 K/uL (0-0.3); HEMATOCRIT 24.3 % (36.0-46.0); IMMATURE GRANULOCYTE (%) 0.4 % (0.0-0.7); LYMPHOCYTE COUNT 1.6 K/uL (1.0-2.8); MCH 26.7 PG (29.0-34.0); MEAN PLAT.VOLUME 9.4 uM^3 (9.5-12.4); MONOCYTE (%) 9.9 % (3-12); MONOCYTE COUNT 0.8 K/uL (0-0.8); NEUTROPHIL (%) 64.6 % (45-76); PLATELET COUNT 337 K/uL (156-360); RBC DIS.WIDTH-SD 45.1 % (39-53); RED BLOOD COUNT 2.73 M/uL (3.80-5.20); WHITE BLOOD COUNT 7.8 K/uL (4.1-10.2)
[2017-05-28 08:15] LABS: ANION GAP 7 MEQ/L (2-14); CHLORIDE 110 MEQ/L (99-109); POTASSIUM 3.5 MEQ/L (3.7-5.4); SAMPLE HEMOLYSIS CHECK 0; SAMPLE ICTERIC CHECK 0; SAMPLE LIPEMIA CHECK 0; SODIUM 144 MEQ/L (136-147)
[2017-05-28 08:21] LABS: GFR ESTIMATE (CALCULATED) 20 mL/min/; GLUCOSE 118 mg/dL (70-99); UREA NITROGEN (BUN) 16 mg/dL (9-23)
[2017-05-28 16:22] VITALS: BP 148/70
[2017-05-29 04:31] VITALS: BP 137/68
[2017-05-29 06:04] LABS: POINT-OF-CARE METER ID UU13113720
[2017-05-30 15:32] LABS: DRVVT Mixing Study Interp Not Indicated (()); PROTEIN C FUNCTIONAL ACTIVITY+ 176 % (70-180); PTT-LA 36 sec (<=40); Protein S, Free 78 % normal (50-147); Thrombosis Consult Level Limited (()); dRVVT Screen 37 sec (<=45)
[2017-06-01 23:00] LABS: ANTITHROMBIN III ACTIVITY+ 104 % activi (80-120)
== END 2017-05-29 15:59 | DRG 65 ==
LOC: 3WEST 13:06
PROVIDERS: Internal Medicine Nephrology; Physical Medicine & Rehabilitation Pain Medicine; Psychiatry & Neurology Neurology
PROC: F07M7ZZ Manual Therapy Techniques Treatment of Musculoskeletal System - Whole Body (ICD-10-PCS; 2017-05-10)
PROC: 5A1D60Z (ICD-10-PCS; principal; 2017-05-19)
DX: I61.9 Nontraumatic intracerebral hemorrhage, unspecified (principal); I69.351 Hemiplegia and hemiparesis following cerebral infarction affecting right dominant side; R13.10 Dysphagia, unspecified; R47.01 Aphasia; N17.9 Acute kidney failure, unspecified; L02.93 Carbuncle, unspecified; E66.01 Morbid (severe) obesity due to excess calories; I12.9 Hypertensive chronic kidney disease with stage 1 through stage 4 chronic kidney disease, or unspecified chronic kidney disease; E11.22 Type 2 diabetes mellitus with diabetic chronic kidney disease; I12.0 Hypertensive chronic kidney disease with stage 5 chronic kidney disease or end stage renal disease; N18.5 Chronic kidney disease, stage 5; E11.319 Type 2 diabetes mellitus with unspecified diabetic retinopathy without macular edema; E11.21 Type 2 diabetes mellitus with diabetic nephropathy; E87.2 Acidosis; E11.65 Type 2 diabetes mellitus with hyperglycemia; D63.1 Anemia in chronic kidney disease; L73.2 Hidradenitis suppurativa; R32 Unspecified urinary incontinence; I51.7 Cardiomegaly; G40.909 Epilepsy, unspecified, not intractable, without status epilepticus; E55.9 Vitamin D deficiency, unspecified; Z86.61 Personal history of infections of the central nervous system; Z68.41 Body mass index [BMI] 40.0-44.9, adult; Z87.441 Personal history of nephrotic syndrome; Z87.891 Personal history of nicotine dependence; Z88.0 Allergy status to penicillin; Z82.49 Family history of ischemic heart disease and other diseases of the circulatory system; Z86.718 Personal history of other venous thrombosis and embolism; Z79.899 Other long term (current) drug therapy; Z79.82 Long term (current) use of aspirin; Z88.2 Allergy status to sulfonamides; Z91.040 Latex allergy status; Z91.19 Patient's noncompliance with other medical treatment and regimen; Z99.2 Dependence on renal dialysis; I69.259 Hemiplegia and hemiparesis following other nontraumatic intracranial hemorrhage affecting unspecified side; Z91.14 Patient's other noncompliance with medication regimen
CPT/HCPCS: 70450; 71010; 76770; 80048; 80053; 80069; 80074; 81050; 81240 90; 82575; 82607; 82728; 82746; 82948; 83090 90; 83540; 83735; 83970; 84100; 84439; 84443; 84466; 85025; 85027; 85240 90; 85300 90; 85303 90; 85305 90; 85306 90; 85307 90; 85613 90; 85730 90; 86146 90; 86147 90; 86704; 86706; 86803; 86900; 86901; 86920; 87340; 92507 GN; 92523 GN; 92526 GN; 92610 GN; 93971; 97112 GO; 97530 GP; 97532 GN; J0881; J1644; J1650; J1756; J1815

== ENCOUNTER 2017-05-19 13:21 | Day surgery (SDC) | payer OTHER ==
[~2017-05-19 13:21] MED LIST changes: +ASPIRIN81 M2 PO; +ATORVASTATIN CA80 MG PO
[2017-05-19 13:40] LABS: POINT-OF-CARE METER ID UU13113696
== END 2017-05-19 15:20 | disposition home or self-care (01) ==
LOC: CATH 13:21
PROVIDERS: Surgery
DX: N18.6 End stage renal disease (principal); Z99.2 Dependence on renal dialysis
CPT/HCPCS: 82948; C1750; C1894; J0690; J1644; J2250; J3010; S0020

== ENCOUNTER 2017-07-18 11:34 | Day surgery (SDC) | payer OTHER ==
[~2017-07-18] VITALS: Ht 165.1 cm; Wt 86.2 kg
[~2017-07-18 11:34] MED LIST changes: +CALMOSEPTINE O120 GM TP; +CATAPRES0.1 MG PO; +CLOPIDOGREL75 MG PO; +DIALYVITE 3,001 EACH PO; +HEPARIN SO5000 UNITS SC; +INSULIN SC; +PLAVIX75 MG PO; +PROCARDIA XL60 MG PO; +SENNA PLUS TAB1 EACH PO; +THERAGRAN1 TABLET PO; +VENOFER100 MG/5 M IV
[2017-07-18 12:13] VITALS: BP 155/85
[2017-07-18 12:19] LABS: MCH 25.5 PG (29.0-34.0); MCHC 31.1 G/DL (30.0-36.0); MEAN PLAT.VOLUME 9.3 uM^3 (9.5-12.4); PLATELET COUNT 361 K/uL (156-360); RBC DIS.WIDTH-CV 13.2 % (11.8-14.6); RBC DIS.WIDTH-SD 39.8 % (39-53); RED BLOOD COUNT 4.51 M/uL (3.80-5.20); WHITE BLOOD COUNT 6.7 K/uL (4.1-10.2)
[2017-07-18 12:27] LABS: CHLORIDE 105 mEq/L (99-109); POTASSIUM 3.9 mEq/L (3.7-5.4); SODIUM 143 mEq/L (136-147)
[2017-07-18 12:29] LABS: GLUCOSE 130 mg/dL (70-99)
[2017-07-18 12:30] LABS: ANION GAP 13 MEQ/L (2-14)
[2017-07-18 12:33] LABS: GFR ESTIMATE (CALCULATED) 13 mL/min/
[2017-07-18 12:36] LABS: UREA NITROGEN (BUN) 33 mg/dL (9-23)
[2017-07-18 15:55] LABS: POINT-OF-CARE METER ID UU13113675
[2017-07-18 16:33] VITALS: BP 191/87
[2017-07-18 17:40] VITALS: BP 182/92
[2017-07-18 18:30] VITALS: BP 174/90
== END 2017-07-18 18:40 | disposition home or self-care (01) ==
LOC: SDC 11:34
PROVIDERS: Surgery
PROC: 05SD0ZZ Reposition Right Cephalic Vein, Open Approach (ICD-10-PCS; principal; 2017-07-18)
PROC: [UNRECOGNIZED PROCEDURE] (principal; 2017-07-18)
DX: I12.0 Hypertensive chronic kidney disease with stage 5 chronic kidney disease or end stage renal disease (principal); E11.22 Type 2 diabetes mellitus with diabetic chronic kidney disease; N18.6 End stage renal disease; Z99.2 Dependence on renal dialysis; I69.328 Other speech and language deficits following cerebral infarction; Z79.4 Long term (current) use of insulin
CPT/HCPCS: 80048; 82948; 85027; J0690; J1644; J2250; J2720; J3010

== ENCOUNTER 2017-11-01 20:39 | Inpatient (IN) | payer OTHER ==
[~2017-11-01] VITALS: Ht 172.7 cm; Wt 76.8 kg
[2017-11-01 21:39] LABS: CHLORIDE 101 mEq/L (99-109); POTASSIUM 3.8 mEq/L (3.7-5.4); SODIUM 139 mEq/L (136-147)
[2017-11-01 21:41] LABS: GLUCOSE 141 mg/dL (70-99)
[2017-11-01 21:42] LABS: ANION GAP 13 MEQ/L (2-14)
[2017-11-01 21:45] LABS: GFR ESTIMATE (CALCULATED) 17 mL/min/; UREA NITROGEN (BUN) 18 mg/dL (9-23)
[2017-11-01 21:53] LABS: QUANTITATIVE HCG < 4.0 MIU/ML
[2017-11-01 21:56] LABS: HEMATOCRIT 35.9 % (36.0-46.0); MCH 26.9 PG (29.0-34.0); MCHC 32.6 G/DL (30.0-36.0); MCV 82.5 FL (83-99); MEAN PLAT.VOLUME 9.4 uM^3 (9.5-12.4); PLATELET COUNT 224 K/uL (156-360); RBC DIS.WIDTH-CV 13.5 % (11.8-14.6); RBC DIS.WIDTH-SD 41.1 % (39-53); RED BLOOD COUNT 4.35 M/uL (3.80-5.20); WHITE BLOOD COUNT 7.7 K/uL (4.1-10.2)
[2017-11-01] MEDS ORDERED: LABETALOL HCL200 MG PO (22:02)
[2017-11-01] MEDS ORDERED: KEPPRA500 MG PO (22:02)
[2017-11-01] MEDS ORDERED: LINZESS72 MCG PO (22:03)
[2017-11-01] MEDS ORDERED: RENVELA800 MG PO (22:03)
[2017-11-02 04:54] VITALS: BP 145/74
[2017-11-02 06:21] LABS: POINT-OF-CARE METER ID UU14117124
[2017-11-02 08:16] VITALS: BP 137/81
[2017-11-02 11:12] VITALS: BP 135/81
[2017-11-02 11:34] LABS: POINT-OF-CARE METER ID UU14188577
[2017-11-02 15:58] VITALS: BP 142/77
[2017-11-02 19:30] VITALS: BP 133/72
[2017-11-02 21:28] LABS: POINT-OF-CARE METER ID UU14117124
[2017-11-02 23:20] VITALS: BP 134/69; BP 134/696
[2017-11-03 04:07] VITALS: BP 139/69
[2017-11-03 06:57] LABS: POINT-OF-CARE METER ID UU14117124
[2017-11-03] MEDS ORDERED: LEVETIRACETAM750 MG PO (07:58)
[2017-11-03 08:02] VITALS: BP 161/84
[2017-11-03 09:40] LABS: ANION GAP 10 MEQ/L (2-14); CHLORIDE 103 MEQ/L (99-109); GLUCOSE 142 mg/dL (70-99); POTASSIUM 3.7 MEQ/L (3.7-5.4); SAMPLE HEMOLYSIS CHECK 0; SAMPLE ICTERIC CHECK 0; SAMPLE LIPEMIA CHECK 0; SODIUM 138 MEQ/L (136-147)
[2017-11-03 09:51] LABS: GFR ESTIMATE (CALCULATED) 11 mL/min/; UREA NITROGEN (BUN) 32 mg/dL (9-23)
[2017-11-03 11:16] VITALS: BP 151/82
[2017-11-03 11:46] LABS: POINT-OF-CARE METER ID UU14149397
== END 2017-11-03 12:45 | disposition home or self-care (01) | DRG 100 ==
LOC: EME → EDBD 20:39 → 3EAST 21:40 → EDOF 21:40 → ENRESERV 21:57 → 3EAST 11-02 04:35 → ENRESERV 11-02 16:35 → CANRESERV 11-02 16:50 → 3EAST 11-03 12:45
PROVIDERS: Emergency Medicine; Internal Medicine; Nurse Practitioner Adult Health
DX: G40.909 Epilepsy, unspecified, not intractable, without status epilepticus (principal); E11.22 Type 2 diabetes mellitus with diabetic chronic kidney disease; E11.21 Type 2 diabetes mellitus with diabetic nephropathy; N18.6 End stage renal disease; N18.4 Chronic kidney disease, stage 4 (severe); I12.0 Hypertensive chronic kidney disease with stage 5 chronic kidney disease or end stage renal disease; D64.9 Anemia, unspecified; E11.319 Type 2 diabetes mellitus with unspecified diabetic retinopathy without macular edema; E66.01 Morbid (severe) obesity due to excess calories; I69.251 Hemiplegia and hemiparesis following other nontraumatic intracranial hemorrhage affecting right dominant side; I69.320 Aphasia following cerebral infarction; Z79.82 Long term (current) use of aspirin; Z99.2 Dependence on renal dialysis; Z87.891 Personal history of nicotine dependence; Z91.14 Patient's other noncompliance with medication regimen; Z86.718 Personal history of other venous thrombosis and embolism; Z79.4 Long term (current) use of insulin; Z74.01 Bed confinement status; Z88.0 Allergy status to penicillin; Z88.2 Allergy status to sulfonamides; Z91.040 Latex allergy status; Z79.899 Other long term (current) drug therapy; Z82.49 Family history of ischemic heart disease and other diseases of the circulatory system; Z87.441 Personal history of nephrotic syndrome
CPT/HCPCS: 70450; 70551; 71020; 80048; 81003; 82948; 84702; 85027; 93880; 99281; 99285; J0360; J1644; J1953; J2060; J2250; J7030; J7050

== ENCOUNTER 2017-11-19 08:50 | Day surgery (SDC) | payer OTHER ==
[~2017-11-19] VITALS: Ht 162.6 cm; Wt 69.9 kg
[~2017-11-19 08:50] MED LIST changes: +ALTACE5 MG PO; +COZAAR100 MG PO; +KEPPRA250 MG PO; +LEVETIRACETAM750 MG PO; +LINZESS72 MCG PO; +LO-DOSE ASPIRIN81 M1 PO; +NORMODYNE,TRAN200 MG PO; +RENVELA800 MG PO; +STOOL SOFTENER100 MG PO
[2017-11-19 09:17] LABS: HEMATOCRIT 35.4 % (36.0-46.0); HEMOGLOBIN 11.1 G/DL (11.9-15.5); MCH 26.6 PG (29.0-34.0); MCHC 31.4 G/DL (30.0-36.0); MCV 84.9 FL (83-99); RBC DIS.WIDTH-CV 13.8 % (11.8-14.6); RBC DIS.WIDTH-SD 42.4 % (39-53); RED BLOOD COUNT 4.17 M/uL (3.80-5.20); WHITE BLOOD COUNT 6.8 K/uL (4.1-10.2)
[2017-11-19 09:20] LABS: PLATELET COUNT 342 K/uL (156-360)
[2017-11-19 09:27] LABS: CHLORIDE 103 mEq/L (99-109); POTASSIUM 3.4 mEq/L (3.7-5.4); SODIUM 140 mEq/L (136-147)
[2017-11-19 09:29] LABS: GLUCOSE 112 mg/dL (70-99)
[2017-11-19 09:30] VITALS: BP 133/73
[2017-11-19 09:32] LABS: CREATININE 4.4 mg/dL (0.6-1.3); GFR ESTIMATE (CALCULATED) 14 mL/min/
[2017-11-19 09:33] LABS: UREA NITROGEN (BUN) 19 mg/dL (9-23)
[2017-11-19 14:44] VITALS: BP 160/82
[2017-11-19 16:20] VITALS: BP 175/85
[2017-11-19 16:50] VITALS: BP 121/71
== END 2017-11-19 16:55 | disposition home or self-care (01) ==
LOC: SDC 08:50
PROVIDERS: Surgery
PROC: 05WY07Z Revision of Autologous Tissue Substitute in Upper Vein, Open Approach (ICD-10-PCS; principal; 2017-11-19)
DX: I12.0 Hypertensive chronic kidney disease with stage 5 chronic kidney disease or end stage renal disease (principal); E11.22 Type 2 diabetes mellitus with diabetic chronic kidney disease; N18.6 End stage renal disease; Z99.2 Dependence on renal dialysis; Z87.891 Personal history of nicotine dependence; Z79.4 Long term (current) use of insulin; Z79.02 Long term (current) use of antithrombotics/antiplatelets
CPT/HCPCS: 80048; 82948; 85027; 93005; J1644; J2250; J2405; J2720; J3010